=== PATIENT | female | born 1985 | race Caucasian/White ===

== ENCOUNTER 2018-10-08 13:10 | Inpatient (IN) ==
[2018-10-08] MEDS ORDERED: OXYTOCIN 30 UNITS/500 ML BAG IV PRN ×2 (13:42→14:40)
[2018-10-08] MEDS ORDERED: LACTATED RINGER'S 1,000 ML IV PRN (13:42)
[2018-10-08] MEDS ORDERED: LACTATED RINGER'S 1,000 ML IV SCH (13:45)
--- NOTE | 2018-10-08 13:46 | History & Physical Report ---
Date of Service October 08, 2018 Assessment & Plan (1) with 39 completed weeks gestation: fetus category 1 (2) Normal labor: History of Present Illness Chief Complaint: leaking fluid, contractions Primary Care Provider: NO PCP Patient is a 33yowaaf with iup at 39weeks who complains of rom about 11. Having contractions since last night and have become much more painful. no vb. uncomplicated. [place]ES[place] at 34 weeks from [place] She had her first baby [place] in the [place]. labs--B+/ab-/pap nl/ri/rprnr/hepb-/hiv-/gc/ct-/cf neg/gbs neg Rubella needs to be redrawn with admission as from 2017 Allergies Allergy/AdvReac Type Severity Reaction Status Date / Time No Known Allergies Allergy Unverified 10/08/18 13:31 Home Medications Home Medications Medication Instructions Recorded Confirmed Type vit-iron fum-folic ac 1 tab PO DAILY 10/08/18 10/08/18 History [ Vitamin] Patient History Surgical History H/O arthroscopy of left knee Social History marital status: Feels Safe at Home: Yes Safety Concerns: Feels Safe At This Time Smoking Status: Never smoker Do You Dip or Chew Tobacco: No Second Hand Exposure: No Hx Alcohol Use: No Hx Substance Use: No Preferred Language: Colombian OB History g1--05/17, , 6#3oz, no complications. [employer] History hx of colposcopy in the past Review of Systems All systems reviewed & are unremarkable except as noted in HPI & below Physical Exam 2 Vital Signs (Past 24 Hours): Last Vital Signs Temp 37.1 C 10/08/18 13:22 Pulse 100 H 10/08/18 13:39 Resp 18 10/08/18 13:23 BP 153/93 H 10/08/18 13:39 Constitutional: WD/WN, vitals as above Gastrointestinal (Abdomen): soft, gravid, nt Genitourinary: sse--hair visible sve--7-8/100/-0 toco--q2-3min [id number] with mod variability, accels to 150s, occasional variable
[2018-10-08] MEDS ORDERED: CARBOPROST TROMETHAMINE 250 MCG/ML AMPUL ONE (14:10)
[2018-10-08] MEDS ORDERED: OXYTOCIN 10 UNITS/ML VIAL ONE (14:21)
[2018-10-08] MEDS ORDERED: IBUPROFEN 600 MG TAB PO ONE (14:30)
[2018-10-08] MEDS ORDERED: BENZOCAINE 20% AER SPR 82.5 GM CAN EXT PRN (14:40)
[2018-10-08] MEDS ORDERED: OXYTOCIN 10 UNITS/ML VIAL IM ONE (14:40)
[2018-10-08] MEDS ORDERED: CARBOPROST TROMETHAMINE 250 MCG/ML AMPUL IM ONE (14:40)
[2018-10-08] MEDS ORDERED: DIPHTHERIA/TETANUS/PERTUSSIS 0.5 ML SYR/VIAL IM ONE (14:40)
[2018-10-08] MEDS ORDERED: HYDROCORTISONE ACETATE 25 MG SUPP PR PRN (14:40)
[2018-10-08] MEDS ORDERED: ACETAMINOPHEN 325 MG TAB PO PRN (14:40)
[2018-10-08] MEDS ORDERED: SUPERCREAM 0.870% 15 GM JAR EXT PRN (14:40)
[2018-10-08] MEDS ORDERED: OXYCODONE/ACETAMINOPHEN 5mg/325mg TAB PO PRN (14:40)
[2018-10-08] MEDS ORDERED: OXYCODONE/ACETAMINOPHEN 5mg/325mg TAB ONE (14:42)
--- NOTE | 2018-10-08 22:36 | Delivery Summary ---
DATE OF OPERATION: 10/08/2018 PREOPERATIVE DIAGNOSIS: 1. Intrauterine at 39+ weeks. 2. Ruptured in active labor. POSTOPERATIVE DIAGNOSIS: Same. PROCEDURES: 1. Normal spontaneous vaginal delivery. 2. Second degree perineal laceration with repair. SURGEON: Dr. Villalobos. ANESTHESIA: Local infiltration of lidocaine to the pelvis. ESTIMATED BLOOD LOSS: 400 cc. PROCEDURE: The patient presented to labor and delivery complaining of ruptured membranes at 11:00 and onset of contractions. Sterile speculum exam revealed baby hair. Vaginal exam revealed her to be 7-8 cm 100% and 0. She progressed quickly thereafter to complete complete and 0 station. She pushed over 1-2 contractions to deliver a viable female infant in KIRA presentation. The head was delivered and then the shoulders and the rest of the body came rapidly. The infant was placed on the maternal abdomen for drying and attention. Cord was clamped and cut at 1 minute of life. Cord blood was obtained. Placenta was delivered spontaneously intact with a 3-vessel cord. Cervix, sulci and rectum were examined and found to be intact. A resultant second degree perineal laceration was identified. It was infiltrated with 1% lidocaine without epinephrine and repaired with 3-0 Vicryl in a normal standard fashion. Hemostasis was obtained with IM Pitocin, IM Hemabate and then dilute IV Pitocin. Estimated blood loss was 400 cc. Apgars were 8 and 9. Mother and baby doing well at the end of the delivery. I attest to the content of the Intraoperative Record and any orders documented therein. Any exception s are noted below.
[2018-10-09] MEDS: IBUPROFEN 600 MG TAB PO PRN ×2 (04:35→15:41)
--- NOTE | 2018-10-09 07:09 | Obstetrical Progress Note ---
Date of Service <Juan Jose Osborne DO - Last Filed: 10/09/18 07:48> October 09, 2018 Assessment & Plan <Juan Jose Osborne DO - Last Filed: 10/09/18 07:48> (1) Spontaneous vaginal delivery: 18 y/o , @ 39 weeks, B+, GBS- Rubella redrawn this morning Requesting discharge home today, reviewed discharge instructions at bedside continue routine post- care until discharge home today (2) with 39 completed weeks gestation: Subjective <Juan Jose Osborne - Last Filed: 10/09/18 07:48> Ambulation: ambulating normally Voiding: no voiding problems Passing Gas:: Yes Diet Tolerance:: regular diet Lochia:: Small Feeding Type:: breast feeding Current Pain Level(1-10): 0 Elis states she is doing well this morning. No fevers, chills, chest pain, shortness of breath, nausea, vomiting. She states she is ready to be discharged home today if medically cleared. Physical Exam <Juan Jose Osborne - Last Filed: 10/09/18 07:48> Vital Signs (Past 24 Hours) Last Vital Signs Temp 36.4 C L 10/09/18 05:00 Pulse 77 10/09/18 05:00 Resp 18 10/09/18 05:00 BP 123/76 10/09/18 05:00 Pulse Ox 98 10/09/18 05:00 Constitutional WD/WN, vitals as above cooperative Respiratory normal respiratory effort, lungs clear to auscultation Cardiovascular RRR, no murmur, no edema Gastrointestinal (Abdomen) Percussion/Palpation: abdomen soft; abdomen nontender fundus is 3cm below umbilicus, firm, non-tender Skin no rashes, warm and dry Neurologic moves all extremities and awake Psychiatric A+Ox3, euthymic affect Results & Data <Juan Jose Osborne DO - Last Filed: 10/09/18 07:48> Medications Administered Benzocaine (Dermoplast Pain Relieving [place]) 1 appln EXT PRN PRN PRN Reason: Perineal Discomfort Stop: 11/07/18 14:39 Last Admin: 10/08/18 23:09 Dose: 82.5 appln Cocaine HCl (Supercream 0.870%) 1 gm EXT BID PRN PRN Reason: Hemorrhoidal Inflammation Stop: 10/22/18 14:39 Last Admin: 10/08/18 23:08 Dose: 1 appln Ibuprofen (Motrin) 600 mg PO Q4H PRN PRN Reason: Pain/[place]/Cramping/Fever Stop: 11/07/18 14:39 Last Admin: 10/09/18 04:35 Dose: 600 mg <Xenia Villalobos MD, FACOG - Last Filed: 10/09/18 07:52> Co-Signing Physician Notes Resident Physician Supervision Note: I interviewed and examined the patient. Discussed with Dr. Osborne and agree with findings and plan as documented in the note. Any exceptions or clarifications are listed here: Doing well. Consider d/c today if baby doing well. Documented By: Xenia Villalobos MD, FACOG
[2018-10-09 07:33] LABS: Hematocrit (blood only) 33.8 % (37-47); Hemoglobin 11.7 g/dL (12.0-16.0); Mean Corpuscular Hgb Conc 34.6 g/dL (32-36); Mean Corpuscular Volume 90.9 fL (80-100); Platelet Count 175 K/uL (130-400); RDW Coefficient of Variation 13.4 % (11.5-14.5); RDW Standard Deviation 43.9 fL (36.4-46.3); Red Blood Count 3.72 M/uL (4.2-5.4); White Blood Count 14.88 K/uL (4.8-10.8)
[2018-10-09] MEDS: DOCUSATE SODIUM 100 MG CAP PO SCH ×3 (08:34→21:23)
[2018-10-09] MEDS: PRENATAL VITAMIN 1 TAB PO SCH (10:00)
--- NOTE | 2018-10-10 06:58 | Obstetrical Progress Note ---
Date of Service <Juan Jose Osborne DO - Last Filed: 10/10/18 07:05> October 10, 2018 Assessment & Plan <Juan Jose Osborne - Last Filed: 10/10/18 07:05> (1) Spontaneous vaginal delivery: 18 y/o , @ 39 weeks, B+, GBS- Rubella redrawn this morning Requesting discharge home today, reviewed discharge instructions at bedside continue routine post- care until discharge home today (2) with 39 completed weeks gestation: Subjective <Juan Jose Osborne - Last Filed: 10/10/18 07:05> Ambulation: ambulating normally Voiding: no voiding problems Passing Gas:: Yes Diet Tolerance:: regular diet Lochia:: Small Feeding Type:: breast feeding Current Pain Level(1-10): 0 Elis is doing well this morning, no fever, chills, chest pain, shortness of breath. Physical Exam <Juan Jose Osborne DO - Last Filed: 10/10/18 07:05> Vital Signs (Past 24 Hours) Last Vital Signs Temp 36.5 C 10/09/18 23:35 Pulse 82 10/09/18 23:35 Resp 18 10/09/18 23:35 BP 114/73 10/09/18 23:35 Pulse Ox 98 10/09/18 15:20 Constitutional WD/WN, vitals as above cooperative Respiratory normal respiratory effort, lungs clear to auscultation Cardiovascular RRR, no murmur, no edema Gastrointestinal (Abdomen) Percussion/Palpation: abdomen soft; abdomen nontender fundus is firm, non-tender, 3cm below umbilicus Skin no rashes, warm and dry Neurologic moves all extremities and awake Psychiatric A+Ox3, euthymic affect Results & Data <Juan Jose Osborne DO - Last Filed: 10/10/18 07:05> Laboratory Results Laboratory Results - last 24 hr 10/09/18 07:17 WBC 14.88 H RBC 3.72 L Hgb 11.7 L Hct 33.8 L MCV 90.9 MCH 31.5 MCHC 34.6 RDW Std Deviation 43.9 RDW Coeff of Navid 13.4 Plt Count 175 MPV 11.0 H Medications Administered Benzocaine (Dermoplast Pain Relieving [employer]) 1 appln EXT PRN PRN PRN Reason: Perineal Discomfort Stop: 11/07/18 14:39 Last Admin: 10/08/18 23:09 Dose: 82.5 appln Cocaine HCl (Supercream 0.870%) 1 gm EXT BID PRN PRN Reason: Hemorrhoidal Inflammation Stop: 10/22/18 14:39 Last Admin: 10/08/18 23:08 Dose: 1 appln Docusate Sodium (Colace) 100 mg PO BID LOIS Stop: 11/07/18 20:59 Last Admin: 10/09/18 21:23 Dose: 100 mg Admin: 10/09/18 08:34 Dose: Not Given Admin: 10/09/18 08:34 Dose: 100 mg Ibuprofen (Motrin) 600 mg PO Q4H PRN PRN Reason: Pain/[place]/Cramping/Fever Stop: 11/07/18 14:39 Last Admin: 10/09/18 15:41 Dose: 600 mg Admin: 10/09/18 04:35 Dose: 600 mg Prenat Multivit/[place]/Iron/Folic Ac ( Vitamin) 1 tab PO QAM [facility] Stop: 11/08/18 08:59 Last Admin: 10/09/18 10:00 Dose: 1 tab <Dionna Salcedo MD, FACOG - Last Filed: 10/10/18 08:40> Co-Signing Physician Notes Resident Physician Supervision Note: I interviewed and examined the patient. Discussed with Dr. Juan Jose Osborne and agree with findings and plan as documented in the note. Any exceptions or clarifications are listed here: [None] Documented By: Dionna Salcedo MD, FACOG
[2018-10-10 07:51] LABS: Hematocrit (blood only) 33.9 % (37-47); Hemoglobin 11.5 g/dL (12.0-16.0)
[2018-10-10] MEDS: PRENATAL VITAMIN 1 TAB PO SCH (09:30)
[2018-10-10] MEDS: DOCUSATE SODIUM 100 MG CAP PO SCH (09:31)
== END 2018-10-10 13:30 | disposition home or self-care (01) | DRG 807 ==
LOC: OPB 13:10 → 4S1 13:14 → 4S2 21:05